=== PATIENT | female | born 1970 | race American Indian/Alaskan Native ===

== ENCOUNTER 2023-02-13 16:06 | Emergency (ER) | payer SELFPAY ==
[~2023-02-13] VITALS: Ht 162.6 cm; Wt 72.7 kg
[~2023-02-13 16:06] MED LIST: MOBIC15 MG PO
[2023-02-13 16:15] VITALS: BP 123/68; TEMP 98.1
[2023-02-13] MEDS ORDERED: AMOXICILLIN 8751 TAB PO (16:38)
[2023-02-13 16:47] VITALS: PULSE 80
== END 2023-02-13 17:18 | disposition home or self-care (01) ==
LOC: COL.ER 16:06
DX: H66.91 Otitis media, unspecified, right ear (principal); Z96.22 Myringotomy tube(s) status